=== PATIENT | female | born 1965 | race Caucasian/White ===

== ENCOUNTER 2021-07-21 06:09 | Emergency (ER) | payer MEDICAID ==
[~2021-07-21] VITALS: Ht 162.6 cm; Wt 72.7 kg
[2021-07-21] MEDS ORDERED: ACET-3385 PO (06:31)
[2021-07-21] MEDS ORDERED: [UNRECOGNIZED DRUG - REMARK] PO (06:31)
[2021-07-21] MEDS ORDERED: ACETAMINOPHEN 500 MG TABLET PO ONE (06:45)
[2021-07-21] MEDS ORDERED: IBUPROFEN 400 MG TABLET PO ONE (06:45)
[2021-07-21] MEDS ORDERED: MAG HYDROX/AL HYDROX/SIMETH ES 30 ML SUSPENSION UDCUP PO ONE (06:45)
[2021-07-21] MEDS ORDERED: OLANZapine 5 MG RAPDIS TABLET PO ONE (06:45)
[2021-07-21 06:50] VITALS: BP 145/84
== END 2021-07-21 10:44 | disposition home or self-care (01) ==
LOC: EMS 06:11
DX: R51.9 Headache, unspecified (principal); M54.2 Cervicalgia; M54.9 Dorsalgia, unspecified; Z87.442 Personal history of urinary calculi; Z86.59 Personal history of other mental and behavioral disorders; Z88.2 Allergy status to sulfonamides; V89.2XXA Person injured in unspecified motor-vehicle accident, traffic, initial encounter; Y93.89 Activity, other specified; Y92.89 Other specified places as the place of occurrence of the external cause; Y99.8 Other external cause status
CPT/HCPCS: 99284; Z7502; Z7610